=== PATIENT | female | born 1985 | race Caucasian/White ===

== ENCOUNTER 2016-12-12 12:10 | Emergency (ER) | payer OTHER ==
[~2016-12-12] VITALS: Ht 154.9 cm; Wt 47.2 kg
[~2016-12-12 12:10] MED LIST: CYCLOBENZAPRINE10 M1 PO; MEBENDAZOLE PO; MOBIC15 M1 PO
[2016-12-12 12:28] VITALS: BP 150/92
[2016-12-12] MEDS ORDERED: CLONIDINE HCL0.1 MG PO (12:52)
[2016-12-12] MEDS ORDERED: ZOFRAN ODT4 M1 SL (12:52)
--- NOTE | 2016-12-12 12:54 | ED PSYCHIATRIC COMPLAINT ---
History of Present Illness General Chief Complaint: ETOH/Drug Related Complaint Stated Complaint: HEROIN DETOX Source: patient, old records, friend Exam Limitations: no limitations Vital Signs & Intake/Output Vital Signs & Intake/Output Vital Signs Date Time Temp Pulse Resp B/P Pulse O2 O2 Flow FiO2 Ox Delivery Rate 12/12 1300 97 Room Air 12/12 1228 97.2 91 16 150/92 97 Room Air Allergies Coded Allergies: amoxicillin (Intermediate, HIVES 03/14/16) fish derived (Intermediate, HIVES 03/14/16) Reconcile Medications Clonidine HCl 0.1 MG TABLET 1 TAB PO SEE ADMIN CRITERIA opiate detox 1 tab Q4H x 2D then 1 tab Q6H x 2D then 1 tab Q8H x 2D then 1 tab Q12H x 2D then 1 tab Q24H x 2D Nitrofurantoin Monohyd/M-Cryst (Macrobid 100 MG Capsule) 100 MG CAPSULE 1 CAP PO BID uti with food Ondansetron (Zofran Odt) 4 MG TAB.RAPDIS 1 TAB SL TID nausea Phenazopyridine HCl (Pyridium) 200 MG TABLET 1 TAB PO TID dysuria Triage Note: PT STATES SHE IS TRYING TO GET INTO THE DETOX PROGRAM FOR HEROIN. PT ADMITS TO USING 1/2 BUNDLE A DAY. PT STATSE SHE HAS BEEN TAKING SUBOXONE BUT "I SCREWED UP YESTERDAY". PT ALSO ADMITS TO SMOKING COCAINE AND STATES SHE USES ABOUT 500 DOLLARS A DAY. PT TRYING TO GET INTO PROGRAM BUT SHE NEEDS DETOX FIRST. PT DENIES ETOH STATES SOBER FROM THAT FOR 3 YEARS. PT LAST USED THIS AM. PT LAST DETOX WAS 3 TO 4 YEARS AGO. DENIES SI/HI Triage Nurses Notes Reviewed? yes Onset: Just prior to arrival Duration: day(s):, constant, continues in ED Timing: recent history Severity: moderate Associated Symptoms: anxiety, impaired concentration, insomnia LMP (ages 10-50): unknown : No Patient currently breastfeeds: No HPI: patient reports abusing cocaine and heroin requesting detox last using prior to admission. She also complains of dysuria and cloudy urine frequency. Denies fever chills nausea vomiting diarrhea abdominal pain chest pain shortness breath headache rash bleeding suicidal ideation homicidal ideation Past History Travel History Traveled to [place] past 21 day No Medical History Any Pertinent Medical History? see below for history Neurological: NARCOLEPSY NEUROPATHY Cardiovascular: HYPOTENSION Psychiatric: anxiety, PANIC ATTACKS Surgical History Surgical History: non-contributory Psychosocial History What is your primary language Kinyarwanda Tobacco Use: Current Daily Use Daily Tobacco Use Amount/Type: => 5 Cigarettes daily ETOH Use: denies use Illicit Drug Use: cocaine, heroin Family History Hx Contributory? No Review of Systems Review of Systems Constitutional: Reports: no symptoms. EENTM: Reports: no symptoms. Respiratory: Reports: no symptoms. Cardiovascular: Reports: no symptoms. GI: Reports: no symptoms. Genitourinary: Reports: see HPI, dysuria, frequency, pain, urgency. Musculoskeletal: Reports: no symptoms. Skin: Reports: no symptoms. Neurological/Psychological: Reports: no symptoms. Hematologic/Endocrine: Reports: no symptoms. Immunologic/Allergic: Reports: no symptoms. All Other Systems: Reviewed and Negative Physical Exam Physical Exam General Appearance: well developed/nourished, alert, awake, anxious, mild distress Head: atraumatic, normal appearance Eyes: Bilateral: normal appearance, PERRL, EOMI. Ears, Nose, Throat: normal pharynx, normal ENT inspection, hearing grossly normal Neck: normal inspection, supple, full range of motion Respiratory: normal breath sounds, chest non-tender, no respiratory distress Cardiovascular: regular rate/rhythm, normal peripheral pulses, norml femoral pulses equa Gastrointestinal: normal bowel sounds, soft, non-tender, no organomegaly Extremities: normal range of motion, no ligament instability Neurological/Psychiatric: no motor/sensory deficits, awake, agitated, alert, normal mood/affect, anxious Appearance/Memory/Insight: disheveled, impaired insight Behavoir/Eye Contact/Speech: cooperative, normal speech Thoughts/Hallucinations: no apparent hallucination Skin: intact, normal color, warm/dry SAD PERSONS Done? patient not suicidal Progress Differential Diagnosis: drug intoxication, drug overdose, drug withdrawal, electrolyte abnormality Plan of Care: Orders Procedure Date/time Status CULTURE,URINE 12/12 1249 Active URINALYSIS 12/12 1246 Complete Laboratory Tests 12/12/16 1253: Urine Color YEL, Urine Clarity HAZY H, Urine pH 6.0, Ur Specific [place] >= 1.030, Urine Protein 100 H, Urine Ketones NEG, Urine Nitrite POS H, Urine Bilirubin NEG, Urine Urobilinogen 0.2, Ur Leukocyte Esterase SMALL H, Ur Microscopic SEDIMENT EXAMINED, Urine RBC 25-50 H, Urine WBC 50-75 H, Ur Epithelial Cells MOD H, Urine Hemoglobin LARGE H, Urine Glucose NEG 12/12/16 1246: Methadone Screen Cancelled, Barbiturate Screen Cancelled, Ur Phencyclidine Scrn Cancelled, Amphetamines Screen Cancelled, U Benzodiazepines Scrn Cancelled, Urine Cocaine Screen Cancelled, Urine Cannabis Screen Cancelled Microbiology 12/12 1253 URINE ROUT: Urine Culture - RECD Departure Departure Time of Disposition: 1251 Disposition: HOME OR SELF CARE Condition: Stable Clinical Impression Primary Impression: Heroin abuse Secondary Impressions: Cocaine abuse UTI (urinary tract infection) Qualifiers: Urinary tract infection type: site unspecified Hematuria presence: with hematuria Qualified Codes: N39.0 - Urinary tract infection, site not specified; R31.9 - Hematuria, unspecified Referrals: UNKNOWN (PCP/Family) Departure Forms: Customer Survey DETOX FACILITIES LIST General Discharge Information Prescriptions: Current Visit Scripts Clonidine HCl 1 TAB PO SEE ADMIN CRITERIA #30 TAB 1 tab Q4H x 2D then 1 tab Q6H x 2D then 1 tab Q8H x 2D then 1 tab Q12H x 2D then 1 tab Q24H x 2D Ondansetron (Zofran Odt) 1 TAB SL TID #15 TAB Phenazopyridine HCl (Pyridium) 1 TAB PO TID #9 TAB Nitrofurantoin Monohyd/M-Cryst (Macrobid 100 MG Capsule) 1 CAP PO BID #14 CAP with food
[2016-12-12] MEDS ORDERED: PYRIDIUM200 M1 PO (13:21)
[2016-12-12] MEDS ORDERED: MACROBID 100 M100 MG PO (13:21)
== END 2016-12-12 13:46 ==
LOC: ERH 12:10
DX: F11.10 Opioid abuse, uncomplicated (principal); F14.10 Cocaine abuse, uncomplicated; N39.0 Urinary tract infection, site not specified
CPT/HCPCS: 80307; 81001; 87086

== ENCOUNTER 2017-01-26 10:09 | Emergency (ER) | payer OTHER ==
[~2017-01-26] VITALS: Ht 154.9 cm; Wt 46.7 kg
[~2017-01-26 10:09] MED LIST changes: +CLONIDINE HCL0.1 MG PO; +MACROBID 100 M100 MG PO; +PYRIDIUM200 M1 PO; +ZOFRAN ODT4 M1 SL
--- NOTE | 2017-01-26 11:51 | ED GENERAL ADULT ---
History of Present Illness General Chief Complaint: ETOH/Drug Related Complaint Stated Complaint: OD Source: patient, old records, EMS, police Exam Limitations: no limitations Vital Signs & Intake/Output Vital Signs & Intake/Output Vital Signs Date Time Temp Pulse Resp B/P Pulse O2 O2 Flow FiO2 Ox Delivery Rate 01/26 1239 97.0 78 14 120/56 97 Room Air 01/26 1029 95 Room Air Room Air 01/26 1017 97.8 96 24 126/80 95 Room Air Room Air Allergies Coded Allergies: amoxicillin (Intermediate, HIVES 03/14/16) fish derived (Intermediate, HIVES 03/14/16) Reconcile Medications Clonidine HCl 0.1 MG TABLET 1 TAB PO SEE ADMIN CRITERIA opiate detox 1 tab Q4H x 2D then 1 tab Q6H x 2D then 1 tab Q8H x 2D then 1 tab Q12H x 2D then 1 tab Q24H x 2D Nitrofurantoin Monohyd/M-Cryst (Macrobid 100 MG Capsule) 100 MG CAPSULE 1 CAP PO BID uti with food Ondansetron (Zofran Odt) 4 MG TAB.RAPDIS 1 TAB SL TID nausea Phenazopyridine HCl (Pyridium) 200 MG TABLET 1 TAB PO TID dysuria Core Measure Meds Pre-Hospital antibiotics Triage Note: TRIAGE: 31 Y/O FEMALE PRESENTS S/P DRUG USE: CRACK AND HEROIN. "SMOKED A BUNCH OF STUFF TODAY." HAD AN ALTERCATION AT HOME PRIOR TO PD ARRIVAL. DENIES ETOH THIS MORNING. REPORTS ETOH LAST NIGHT: 3-4 MARGARITAS. DENIES PHYSICAL COMPLAINTS: -N/-V/-D. DENIES CHEST PAIN. DENIES SUICIDALITY AND HOMICIDALITY AT PRESENT. * REMAINS IN PD CUSTODY. Triage Nurses Notes Reviewed? yes Onset: 2 days Duration: day(s):, constant, continues in ED Timing: recent history Injury Environment: home Severity: severe No Modifying Factors: none LMP (ages 10-50): unknown : No Patient currently breastfeeds: No HPI: Patient reports 2 days prior to admission she smoked crack heroin and LSD. Last using several hours prior to admission. She got into an argument with another female the police were called and she became violent trying to resist arrest. She denies fever chills nausea vomiting diarrhea abdominal pain chest pain shortness of breath headache dysuria rash bleeding suicidal ideation homicidal ideation hallucination. Past History Travel History Traveled to [place] past 21 day No Medical History Any Pertinent Medical History? see below for history Neurological: NARCOLEPSY NEUROPATHY Cardiovascular: HYPOTENSION Psychiatric: anxiety, PANIC ATTACKS Isolation History: Standard Surgical History Surgical History: non-contributory Psychosocial History What is your primary language Algerian Tobacco Use: Current Daily Use Daily Tobacco Use Amount/Type: => 5 Cigarettes daily ETOH Use: occasional use Illicit Drug Use: cocaine, heroin, marijuana Family History Hx Contributory? No Review of Systems Review of Systems Constitutional: Reports: no symptoms. EENTM: Reports: no symptoms. Respiratory: Reports: no symptoms. Cardiovascular: Reports: no symptoms. GI: Reports: no symptoms. Genitourinary: Reports: no symptoms. Musculoskeletal: Reports: no symptoms. Skin: Reports: no symptoms. Neurological/Psychological: Reports: see HPI, anxiety, confusion. Hematologic/Endocrine: Reports: no symptoms. Immunologic/Allergic: Reports: no symptoms. All Other Systems: Reviewed and Negative Physical Exam Physical Exam General Appearance: well developed/nourished, alert, awake, anxious, moderate distress, thin Head: atraumatic, normal appearance Eyes: Bilateral: normal appearance, PERRL, EOMI. Ears, Nose, Throat: normal pharynx, normal ENT inspection, hearing grossly normal, moist mucus membranes Neck: normal inspection, supple, full range of motion, no midline tenderness Respiratory: normal breath sounds, chest non-tender, no respiratory distress, quiet respiration, lungs clear Cardiovascular: regular rate/rhythm, normal peripheral pulses, norml femoral pulses equa Peripheral Pulses: 4+ carotid (R), 4+ carotid (L) Gastrointestinal: normal bowel sounds, soft, non-tender, no organomegaly Back: normal inspection, normal range of motion, no vertebral tenderness Extremities: normal inspection, normal capillary refill, normal range of motion, no edema Neurologic/Psych: no motor/sensory deficits, awake, alert, oriented x 3, 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 Skin: intact, normal color, warm/dry Lymphatic: no anterior cervical wolf Core Measures ACS in differential dx? No CVA/TIA Diagnosis: No Severe Sepsis Present: No Septic Shock Present: No Progress Differential Diagnoses I considered the following diagnoses in my evaluation of the patient: Recreational drug abuse Plan of Care: Orders Procedure Date/time Status Regular Diet 01/26 L Active Patient Safety Monitor 01/26 1026 Active EKG 01/26 1023 Active Initial ED EKG: normal axis, normal intervals, normal p-waves, normal QRS complex, normal sinus rhythm, no ST T wave changes Rhythm Strip: normal sinus rhythm Departure Departure Time of Disposition: 1151 Disposition: HOME OR SELF CARE Condition: Stable Clinical Impression Primary Impression: Polysubstance abuse Referrals: UNKNOWN (PCP) Departure Forms: Customer Survey General Discharge Information Critical Care Note Critical Care Note Critical Care Time: non-applicable
[2017-01-26 12:39] VITALS: BP 120/56
== END 2017-01-26 13:00 ==
LOC: ERH 10:09
DX: F14.10 Cocaine abuse, uncomplicated (principal); F11.10 Opioid abuse, uncomplicated; F16.10 Hallucinogen abuse, uncomplicated
CPT/HCPCS: 93005; 93010